=== PATIENT | male | born 1970 | race Caucasian/White ===

== ENCOUNTER 2022-12-23 19:07 | Emergency (ER) | payer OTHER ==
[~2022-12-23] VITALS: Ht 165.1 cm; Wt 66.0 kg
[2022-12-23] MEDS ORDERED: BOOSTRIX VACCINE (TETANUS/DIPHTH/ACEL. PERTUSSIS) 0.5ML SYR IM ONE (20:30)
[2022-12-23] MEDS ORDERED: LIDOCAINE 1% MDV 20ML VIAL SC ONE (20:30)
[2022-12-23] MEDS ORDERED: ceFAZolin SOD 1 GM in D5W MINI-BAG PLUS 50 ML IV ONE (20:30)
[2022-12-23] MEDS ORDERED: CEPH500C PO (22:47)
[2022-12-23 22:54] VITALS: BP 145/87
== END 2022-12-23 22:55 | disposition home or self-care (01) ==
LOC: M ED 19:07
DX: S81.012A Laceration without foreign body, left knee, initial encounter (principal); S61.214A Laceration without foreign body of right ring finger without damage to nail, initial encounter; W31.89XA Contact with other specified machinery, initial encounter; Y92.009 Unspecified place in unspecified non-institutional (private) residence as the place of occurrence of the external cause
CPT/HCPCS: 12002; 73140; 73564; 90471; 90715; 96365; 99284; J0690